=== PATIENT | female | born 1950 | race African-American/Black ===

== ENCOUNTER 2017-04-24 14:46 | Emergency (ER) | payer MEDICARE, MEDICAID ==
[~2017-04-24] VITALS: Ht 177.8 cm; Wt 90.0 kg
[~2017-04-24 14:46] MED LIST: AMIODARONE200 MG PO; AUGMENTIN875TAB PO; BABY ASPIRIN81 MG PO; BAYER ASPIRIN E81 MG PO; CHANTIX PO; CLONIDINE0.1 MG PO; DOCUSATE CAL240 MG PO; FLEXERIL PO; FLONASE NASAL50 MCG; FLUTICASONE50 MCG; FLUZONE SPLT1 M1 IM; FOSAMAX PLUS PO; FUROSEMIDE40 MG PO; HOME O2 NAB; IBUPROFEN600 MG PO; IMDUR30 MG PO; LANTUS100 MG/ML SC; LASIX40 MG PO; LEVOTHYROXIN125 MC1 PO; LEVOTHYROXIN137 MCG PO; LEVOTHYROXINE PO; LISINOPRIL10 MG PO; LISINOPRIL20 MG PO; METFORMIN500 MG PO; METO50TA52 PO; MICRO-K10 ME1 PO; MICRO-K10 MEQ PO; MIRALAX3350 NF PO; MITIGARE0.6 MG PO; NORCO1 TA1 PO; OXYCODONE/APAP PO; PEPCID PO; PEPCID20 MG PO; PLAVIX75 MG PO; POT CHLORIDE10 ME1 PO; PREDNISONE10 MG PO; PROAIR HFA IN; SIMVASTATIN40 MG PO; STOOL SOFTEN240 MG PO; TRAMADOL HCL50 MG PO; ULTRAM50 M1 PO; ZANTAC 150 PO; ZANTAC150 M1 PO; ZPAK PO
[2017-04-24 16:56] VITALS: BP 124/65
== END 2017-04-24 17:08 | disposition home or self-care (01) ==
LOC: ED 14:46
DX: T78.3XXA Angioneurotic edema, initial encounter (principal); I25.10 Atherosclerotic heart disease of native coronary artery without angina pectoris; I10 Essential (primary) hypertension; E11.9 Type 2 diabetes mellitus without complications; E78.5 Hyperlipidemia, unspecified; J44.9 Chronic obstructive pulmonary disease, unspecified; E03.9 Hypothyroidism, unspecified; F17.210 Nicotine dependence, cigarettes, uncomplicated; T46.4X5A Adverse effect of angiotensin-converting-enzyme inhibitors, initial encounter; Z99.81 Dependence on supplemental oxygen

== ENCOUNTER → 2018-09-08 | Outpatient (REF) | payer MEDICARE, MEDICAID | END | disposition home or self-care (01) | LOC: BD 08-12 09:30 | PROVIDERS: ATTEND Internal Medicine | DX: N95.1 Menopausal and female climacteric states (principal) ==

== ENCOUNTER 2022-02-06 06:50 | Day surgery (SDC) | payer MEDICARE ==
[~2022-02-06] VITALS: Ht 177.8 cm; Wt 93.0 kg
[~2022-02-06 06:50] MED LIST changes: +CALCI23 PO; +FISH OIL1000 MG PO; +FLAX OIL PO; +FLAX SEED1000 MG PO; +GABAPENTIN100 MG PO; +LOSARTAN POTASS25 MG PO; +PROLIA60 MG/ML SC; +SPIRIVA RE1.25 MCG/A; +TIZANIDINE2 MG PO; +TRAMADOL HYDROC50 M1 PO; +VITAMIN B-12500 MCG PO; +VITAMIN C1000 MG PO; +VITAMIN D31000 UNI1 PO
[2022-02-06] MEDS ORDERED: LIPITOR20 M1 PO (07:25)
[2022-02-06 09:04] VITALS: BP 138/68
== END 2022-02-06 09:20 | disposition home or self-care (01) ==
LOC: ENDO 06:50
PROVIDERS: ATTEND Surgery
PROC: 0DJD8ZZ Inspection of Lower Intestinal Tract, Via Natural or Artificial Opening Endoscopic (ICD-10-PCS; principal; 2022-02-06)
DX: Z12.11 Encounter for screening for malignant neoplasm of colon (principal); K57.30 Diverticulosis of large intestine without perforation or abscess without bleeding; K64.8 Other hemorrhoids; K64.4 Residual hemorrhoidal skin tags; I11.0 Hypertensive heart disease with heart failure; I50.9 Heart failure, unspecified; E11.9 Type 2 diabetes mellitus without complications; I48.91 Unspecified atrial fibrillation; E03.9 Hypothyroidism, unspecified; E78.5 Hyperlipidemia, unspecified; F17.210 Nicotine dependence, cigarettes, uncomplicated; Z79.4 Long term (current) use of insulin

== ENCOUNTER 2022-12-08 09:43 | Day surgery (SDC) | payer MEDICARE ==
[~2022-12-08] VITALS: Ht 177.8 cm; Wt 93.0 kg
[~2022-12-08 09:43] MED LIST changes: +LIPITOR20 M1 PO
[2022-12-08] MEDS ORDERED: AMLODIPINE BESYL5 MG PO ×2 (10:44→10:45)
[2022-12-08 13:14] VITALS: BP 151/54
== END 2022-12-08 12:55 | disposition home or self-care (01) ==
LOC: ORM 09:43
PROVIDERS: ATTEND Internal Medicine Gastroenterology
PROC: 0DJD8ZZ Inspection of Lower Intestinal Tract, Via Natural or Artificial Opening Endoscopic (ICD-10-PCS; principal; 2022-12-08)
PROC: 0DB98ZX Excision of Duodenum, Via Natural or Artificial Opening Endoscopic, Diagnostic (ICD-10-PCS; 2022-12-08)
PROC: 0DB78ZX Excision of Stomach, Pylorus, Via Natural or Artificial Opening Endoscopic, Diagnostic (ICD-10-PCS; 2022-12-08)
PROC: 0DB68ZX Excision of Stomach, Via Natural or Artificial Opening Endoscopic, Diagnostic (ICD-10-PCS; 2022-12-08)
DX: K29.71 Gastritis, unspecified, with bleeding (principal); B96.81 Helicobacter pylori [H. pylori] as the cause of diseases classified elsewhere; K64.8 Other hemorrhoids; K76.6 Portal hypertension; K31.89 Other diseases of stomach and duodenum; K44.9 Diaphragmatic hernia without obstruction or gangrene; D64.9 Anemia, unspecified; I48.91 Unspecified atrial fibrillation; J44.9 Chronic obstructive pulmonary disease, unspecified; I10 Essential (primary) hypertension; E78.5 Hyperlipidemia, unspecified; B18.2 Chronic viral hepatitis C; E03.9 Hypothyroidism, unspecified; E11.40 Type 2 diabetes mellitus with diabetic neuropathy, unspecified; Z79.4 Long term (current) use of insulin